=== PATIENT | female | born 1970 | race Caucasian/White ===

== ENCOUNTER → 2017-04-25 10:16 | Outpatient (CLI) | payer OTHER, SELFPAY | PROVIDERS: Family Provider Internal Medicine; PCP Internal Medicine; Visit Provider Nurse Practitioner Women's Health | DX: Z12.4 Encounter for screening for malignant neoplasm of cervix (principal) ==

== ENCOUNTER → 2017-05-29 08:12 | Outpatient (CLI) | payer OTHER, SELFPAY ==
--- NOTE | 2017-05-29 08:14 | HPBI_ITS ---
MAMMOGRAPHY - BILATERAL SCREENING REASON FOR EXAM: Female, 46 years old. Routine annual screening examination. PERTINENT HISTORY: Non-contributory. TECHNIQUE: Digital bilateral breast priscila (3D mammographic acquisition) in the CC and MLO projections. 2-D mediolateral oblique (MLO) and craniocaudad (CC) views of both breasts were obtained. CAD: Full Field Digital Mammography with Computer Added Detection was performed. COMPARISON: Comparison is made with prior examination dated August 15, 2015. FINDINGS: Breast Composition: The breasts are heterogeneously dense, which may obscure small masses. There are no dominant masses or suspicious calcifications. No other significant abnormalities are identified. There has been no significant change since the prior study. HPBI/SCREENING MAMM (CAD), BILAT IMPRESSION: Stable bilateral screening mammogram. Yearly follow-up mammogram recommended. (A) ASSESSMENT CATEGORY: BIRADS Category 1: Negative. A letter regarding these results will be sent to the patient by the facility within 30 days. Approximately 10% of breast cancers are not detected by mammography. A normal mammogram should not delay biopsy of a clinically suspicious abnormality. [id number] Electronically Signed: Joshua Renee MD at 10:57 EST Tel [phone], Service support ,
== END ==
PROVIDERS: Visit Provider Nurse Practitioner Women's Health
DX: Z12.31 Encounter for screening mammogram for malignant neoplasm of breast (principal)
CPT/HCPCS: 77063; 77067

== ENCOUNTER → 2019-02-17 09:55 | Outpatient (CLI) | payer OTHER, SELFPAY ==
[2018-06-22 11:04] VITALS: BMI 24.9
[2018-12-25 08:27] VITALS: BMI 24.9
--- NOTE | 2019-02-17 09:57 | BI_ITS ---
MAMMOGRAPHY - BILATERAL SCREENING 3-D TOMOSYNTHESIS REASON FOR EXAM: Female, 48 years old. Routine annual screening examination. PERTINENT HISTORY: No significant family history. TECHNIQUE: 2-D mammograms and 3-D Tomosynthesis of the breast (s) were performed. CAD was performed. COMPARISON: May 29, 2017 FINDINGS: The breast composition is almost entirely fat. Scattered benign calcifications are seen. No dense spiculated masses or suspicious microcalcifications are identified. No architectural distortion is identified. There is no skin thickening or retraction. Stable lymph nodes. There has been no significant change since the prior study. BI/SCREEN MAMM (CAD) W/JERRI BILAT IMPRESSION: No mammographic signs of malignancy. Routine yearly mammograms recommended. ASSESSMENT CATEGORY: BIRADS Category 2: Benign. A letter regarding these results will be sent to the patient by the facility within 30 days. FOLLOW UP RECOMMENDATION: Yearly follow up mammogram recommended. (A) Approximately 10% of breast cancers are not detected by mammography. A normal mammogram should not delay biopsy of a clinically suspicious abnormality. Electronically Signed: Morgan Méndez MD at 11:26 EST , Service support ,
== END ==
PROVIDERS: Family Provider Internal Medicine; PCP Internal Medicine; Referring Provider Nurse Practitioner Women's Health; Visit Provider Nurse Practitioner Women's Health
DX: Z12.31 Encounter for screening mammogram for malignant neoplasm of breast (principal)
CPT/HCPCS: 77063; 77067

== ENCOUNTER → 2020-04-05 15:53 | Outpatient (CLI) | payer OTHER, SELFPAY ==
[2020-03-01 08:57] VITALS: BMI 25.0
--- NOTE | 2020-04-05 15:56 | BD_ITS ---
STUDY: DUAL ENERGY X-RAY ABSORPTIOMETRY / DXA REASON FOR EXAM: Female, 49 years old. 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 COMPARISON: None. FINDINGS: Lumbar Spine (L1-L4): g/cm2 (1.296) / T-score (1.1) / Z-score (1.6) Findings are suggestive of normal bone density with a low fracture risk. Left Femur Total: g/cm2 (1.083) / T-score (0.6) / Z-score (1.1) Left Femoral Neck: g/cm2 (0.945) / T-score (-0.7) / Z-score (0.2) Right Femur Total: g/cm2 (1.067) / T-score (0.5) / Z-score (1.0) Right Femoral Neck: g/cm2 (0.931) / T-score (-0.8) / Z-score (0.1) BD/Dexa Bone Density Study IMPRESSION: The patient is considered normal as outlined below according to World [employer] Organization (WHO) criteria with a low fracture risk. Reference Information: The T-score is the number of standard deviations above or below the standard which is normal for young adults at their peak bone mineral density. The World Health Organization (WHO) interprets the T-scores as follows: Above -1 Normal bone density Between -1 and -2.5 Osteopenia Equal to / or below -2.5 Osteoporosis As a practical clinical guideline, osteopenia may be graded as follows: Mild -1 through -1.5 Moderate -1.6 through -2.0 Severe -2.1 through -2.4 The Z-score is the number of standard deviations above or below age-matched controls. A Z-score of less than -1.5 would be considered abnormal. References: 1. NIH Osteoporosis and Related Bone Diseases www osteo.org 2. International Society for Clinical Densitometry www iscd.org 3. National Osteoporosis Foundation www nof.org Electronically Signed: Joshua Renee, at 15:28 EST , Service support ,
--- NOTE | 2020-04-05 15:56 | BI_ITS ---
MAMMOGRAPHY - BILATERAL SCREENING REASON FOR EXAM: Female, 49 years old. Routine annual screening examination. PERTINENT HISTORY: Non-contributory. TECHNIQUE: Digital bilateral breast jerri (3D mammographic acquisition) in the CC and MLO projections. 2-D mediolateral oblique (MLO) and craniocaudad (CC) views of both breasts were obtained. CAD: Full Field Digital Mammography with Computer Added Detection was performed. COMPARISON: Comparison is made with prior examination dated 02/17/2019 and 05/29/2017. FINDINGS: Breast Composition: The breasts are heterogeneously dense, which may obscure small masses. There are no dominant masses or suspicious calcifications. Stable small benign appearing bilateral axillary lymph nodes. No other significant abnormalities are identified. There has been no significant change since the prior study. BI/SCREEN MAMM (CAD) W/JERRI BILAT IMPRESSION: Stable bilateral screening mammogram. Yearly follow-up mammogram recommended. (A) ASSESSMENT CATEGORY: BIRADS Category 2: Benign. A letter regarding these results will be sent to the patient by the facility within 30 days. Approximately 10% of breast cancers are not detected by mammography. A normal mammogram should not delay biopsy of a clinically suspicious abnormality. [id number] Electronically Signed: Joshua Renee, at 8:30 EST , Service support ,
== END ==
PROVIDERS: PCP Internal Medicine; Referring Provider Nurse Practitioner Women's Health; Visit Provider Nurse Practitioner Women's Health
DX: Z12.31 Encounter for screening mammogram for malignant neoplasm of breast (principal); Z78.0 Asymptomatic menopausal state
CPT/HCPCS: 77063; 77067; 77080

== ENCOUNTER 2021-04-11 16:25 | Outpatient (CLI) | payer OTHER, SELFPAY ==
[2020-10-21 08:44] VITALS: BMI 25.0
--- NOTE | 2021-04-11 16:27 | BI_ITS ---
MAMMOGRAPHY - BILATERAL SCREENING REASON FOR EXAM: Female, 50 years old. Routine annual screening examination. PERTINENT HISTORY: Non-contributory. TECHNIQUE: Digital bilateral breast jerri (3D mammographic acquisition) in the CC and MLO projections. 2-D mediolateral oblique (MLO) and craniocaudad (CC) views of both breasts were obtained. CAD: Full Field Digital Mammography with Computer Added Detection was performed. COMPARISON: Comparison is made with prior study dated 04/05/2020 and 02/17/2019. FINDINGS: Breast Composition: The breasts are heterogeneously dense, which may obscure small masses. There are no dominant masses or suspicious calcifications. Stable benign appearing bilateral axillary lymph nodes. No other significant abnormalities are identified. There has been no significant change since the prior study. BI/SCRN MAMM (CAD)W/JERRI BILAT IMPRESSION: Stable bilateral screening mammogram. Yearly follow-up mammogram recommended. (A) ASSESSMENT CATEGORY: BIRADS Category 2: Benign. A letter regarding these results will be sent to the patient by the facility within 30 days. Approximately 10% of breast cancers are not detected by mammography. A normal mammogram should not delay biopsy of a clinically suspicious abnormality. [id number] Electronically Signed: Joshua Renee MD at 8:44 EST , Service support ,
== END 2021-04-11 23:59 | disposition short-term general hospital (02) ==
PROVIDERS: PCP Internal Medicine; Referring Provider Nurse Practitioner Women's Health; Visit Provider Nurse Practitioner Women's Health
DX: Z12.31 Encounter for screening mammogram for malignant neoplasm of breast (principal)
CPT/HCPCS: 77063; 77067

== ENCOUNTER → 2022-04-24 | Outpatient (CLI) | payer OTHER, SELFPAY ==
[2022-04-28 14:50] LABS: HPV APTIMA, High Risk Negative (Negative)
== END | disposition home or self-care (01) ==
LOC: LABSPEC 10:58
PROVIDERS: PCP Internal Medicine; Visit Provider Nurse Practitioner Women's Health
DX: Z12.4 Encounter for screening for malignant neoplasm of cervix (principal)
CPT/HCPCS: 87624; 88175; G0145

== ENCOUNTER → 2022-04-25 | Outpatient (CLI) | payer OTHER, SELFPAY ==
--- NOTE | 2022-04-25 13:51 | BI_ITS ---
MAMMOGRAPHY - BILATERAL SCREENING REASON FOR EXAM: Female, 51 years old. Routine annual screening examination. PERTINENT HISTORY: Non-contributory. TECHNIQUE: Digital bilateral breast jerri (3D mammographic acquisition) in the CC and MLO projections. 2-D mediolateral oblique (MLO) and craniocaudad (CC) views of both breasts were obtained. CAD: Full Field Digital Mammography with Computer Added Detection was performed. COMPARISON: Comparison is made with prior study dated 04/11/2021 and 04/05/2020. FINDINGS: Breast Composition: The breasts are heterogeneously dense, which may obscure small masses. There are no dominant masses or suspicious calcifications. Stable small benign-appearing bilateral axillary lymph nodes. No other significant abnormalities are identified. There has been no significant change since the prior study. BI/SCRN MAMM (CAD)W/JERRI BILAT IMPRESSION: Stable bilateral screening mammogram. Yearly follow-up mammogram recommended. (A) ASSESSMENT CATEGORY: BIRADS Category 2: Benign. A letter regarding these results will be sent to the patient by the facility within 30 days. Approximately 10% of breast cancers are not detected by mammography. A normal mammogram should not delay biopsy of a clinically suspicious abnormality. [id number] Electronically Signed: Joshua Renee MD at 15:01 EST ,
== END | disposition home or self-care (01) ==
LOC: OPBI 13:49
PROVIDERS: PCP Internal Medicine; Referring Provider Nurse Practitioner Women's Health; Visit Provider Nurse Practitioner Women's Health
DX: Z12.31 Encounter for screening mammogram for malignant neoplasm of breast (principal)
CPT/HCPCS: 77063; 77067

== ENCOUNTER → 2023-02-02 | Outpatient (CLI) | payer OTHER, SELFPAY ==
[2023-02-02 08:57] LABS: Hematocrit 41.5 % (37-47); Hemoglobin 13.4 g/dL (12.0-15.0); Mean Corp Hgb Conc 32.3 g/dL (32-36); Mean Corpuscular Hgb 29.1 pg (27.0-32.0); Mean Platelet Vol. 10.6 fl (6.2-12.0); Platelet Count 286 K/mm3 (150-450); Red Blood Count 4.61 M/mm3 (4.2-5.4); White Blood Count 5.4 K/mm3 (4.4-11.0)
[2023-02-02 09:49] LABS: ALB/GLOB Ratio 1.1 RATIO (0.9-2.4); AST(SGOT) 14 U/L (15-37); Alanine Aminotransfer ALT/SGPT 23 U/L (13-56); Albumin, Serum 3.8 g/dL (3.2-5.0); Alkaline Phosphatase 47 U/L (45-117); Anion Gap 3 (5-15); BUN 18 mg/dL (7-18); BUN/Creat Ratio 24.1 RATIO (10-20); Calcium,Total 8.9 mg/dL (8.5-10.1); Chloride 107 mmol/L (98-107); Cholesterol 182 mg/dL (200); Creatinine, Serum 0.75 mg/dL (0.55-1.02); EST Glomerular Filtration Rate 86 mL/min (>60); Est Glom Filt Rate - Afr Amer 104 mL/min (>60); Globulin 3.5 g/dL (2.2-4.2); Glucose 94 mg/dL (74-106); High Density Lipoprotein 74 mg/dL; Protein, Total 7.3 g/dL (6.4-8.2); Sodium Level 139 mmol/L (136-145); Thyroid Stim Hormone (TSH) 3.18 uIU/mL (0.358-3.74); Triglycerides 43 mg/dL; Very Low Density Lipoprotein 9 mg/dL (5-40)
== END | disposition home or self-care (01) ==
LOC: LAB 07:48
PROVIDERS: PCP Internal Medicine; Visit Provider Nurse Practitioner
DX: Z00.00 Encounter for general adult medical examination without abnormal findings (principal); Z13.220 Encounter for screening for lipoid disorders; Z13.1 Encounter for screening for diabetes mellitus
CPT/HCPCS: 36415; 80053; 80061; 84443; 85027

== ENCOUNTER → 2023-06-07 | Outpatient (CLI) | payer OTHER, SELFPAY ==
--- NOTE | 2023-06-07 08:08 | BI_ITS ---
MAMMOGRAPHY - BILATERAL SCREENING REASON FOR EXAM: Female, 52 years old. Routine annual screening examination. PERTINENT HISTORY: Non-contributory. TECHNIQUE: Digital bilateral breast jerri (3D mammographic acquisition) in the CC and MLO projections. 2-D mediolateral oblique (MLO) and craniocaudad (CC) views of both breasts were obtained. CAD: Full Field Digital Mammography with Computer Added Detection was performed. COMPARISON: Comparison is made with prior study April 25, 2022 and April 11, 2021. FINDINGS: Breast Composition: The breasts are heterogeneously dense, which may obscure small masses. There are no dominant masses or suspicious calcifications. Stable small benign-appearing bilateral axillary lymph nodes. No other significant abnormalities are identified. There has been no significant change since the prior study. BI/SCRN MAMM (CAD)W/JERRI BILAT IMPRESSION: Stable bilateral screening mammogram. Yearly follow-up mammogram recommended. (A) ASSESSMENT CATEGORY: BIRADS Category 2: Benign. A letter regarding these results will be sent to the patient by the facility within 30 days. Approximately 10% of breast cancers are not detected by mammography. A normal mammogram should not delay biopsy of a clinically suspicious abnormality. [id number] Electronically Signed: Joshua Renee MD at 9:05 EDT ,
--- OUTSIDE RECORDS SUMMARY | 2023-06-07 08:25 | XMS RPT_ITS | CCD ---
Author Name Unknown Address [address] [place] [address] Organization [facility] Care Team Providers Care Commercial Front Load Operator Name Role Phone Ninoska WE[place], [place] Primary Care Provider Billy Gallardo MD Primary Care Provider [phone] BILLY GALLARDO Primary Care Unavailable OLDER, EDITH Attending Unavailable Allergies Allergy Classification Reported Allergen(s) Allergy Type Date of Onset Reaction(s) Facility (3 sources) Enviromental [Other] Propensity to adverse reactions [address] [place] [address] Work Phone: (1 source) OTHER; Translations: [OTHER] Propensity to adverse reactions (disorder) [address] [place] [address] Repository Medications Completed/Discontinued Medications Medication Drug Class(es) Dates Sig (Normalized) Sig (Original) Calcium Carbonate / vitamin D3 (2 sources) End: 01-25-2023 CALCIUM CARBONATE/VITAMIN D3 (VITAMIN D-3 ORAL) Take by mouth. 0 01/25/2023 Discontinued (Discontinued by Patient) Problems Active Problems Problem Classification Problem Date Documented Da te Episodic/Chronic Anxiety disorders (2 sources) Anxiety; Translations: [Anxiety disorder, unspecified] Onset: 01-25-2023 01-28-2023 Chronic Other screening for suspected conditions (not mental disorders or infectious disease) (5 sources) Patient encounter status; Translations: [Encounter for screening for malignant neoplasm of colon] Onset: 01-25-2023 Episodic Past or Other Problems Problem Classification Problem Date Documented Da te Episodic/Chronic Allergic reactions (3 sources) Radiation-induced dermatosis; Translations: [Other skin changes due to chronic exposure to nonionizing radiation] Onset: 11-10-2007 09-13-2009 Episodic Neoplasms of unspecified nature or uncertain behavior (3 sources) Neoplasm of uncertain behavior of skin; Translations: [Neoplasm of uncertain behavior of skin] Onset: 11-12-2009 11-12-2009 Episodic Other and unspecified benign neoplasm (3 sources) Benign neoplasm of skin of trunk; Translations: [Other benign neoplasm of skin of trunk] Onset: 11-10-2007 11-10-2007 Episodic Other and unspecified benign neoplasm (3 sources) Benign neoplasm of skin of face; Translations: [Other benign neoplasm of skin of unspecified part of face] Onset: 11-10-2007 11-10-2007 Episodic Other and unspecified benign neoplasm (3 sources) Benign tumor of head and neck; Translations: [Other benign neoplasm of skin of scalp and neck] Onset: 11-10-2007 11-10-2007 Episodic Other and unspecified benign neoplasm (3 sources) Benign neoplasm of skin of upper limb; Translations: [Other benign neoplasm of skin of unspecified upper limb, including shoulder] Onset: 11-10-2007 11-10-2007 Episodic Other and unspecified benign neoplasm (3 sources) Dysplastic nevus of skin; Translations: [Melanocytic nevi, unspecified] Onset: 10-08-2009 10-08-2009 Episodic Other and unspecified benign neoplasm (3 sources) Dysplastic nevus of trunk; Translations: [Other benign neoplasm of skin of trunk] Onset: 10-08-2009 10-08-2009 Episodic Other and unspecified benign neoplasm (3 sources) Melanocytic nevus of trunk; Translations: [Melanocytic nevi of trunk] Onset: 10-08-2009 10-08-2009 Episodic Other and unspecified benign neoplasm (3 sources) Melanocytic nevus of upper limb; Translations: [Melanocytic nevi of unspecified upper limb, including shoulder] Onset: 10-08-2009 10-08-2009 Episodic Other and unspecified benign neoplasm (3 sources) Melanocytic nevus of lower limb; Translations: [Melanocytic nevi of unspecified lower limb, including hip] Onset: 10-08-2009 10-08-2009 Episodic Other circulatory disease (3 sources) Non-neoplastic nevus; Translations: [Nevus, non-neoplastic] Onset: 11-10-2007 11-10-2007 Episodic Other skin disorders (3 sources) Disorder of skin pigmentation; Translations: [Disorder of pigmentation, unspecified] Onset: 11-10-2007 10-08-2009 Episodic Other skin disorders (3 sources) Seborrheic keratosis; Translations: [Other seborrheic keratosis] Onset: 10-08-2009 10-08-2009 Episodic Other skin disorders (3 sources) Skin tag; Translations: [Unspecified hypertrophic and atrophic conditions of skin] Onset: 10-08-2009 10-08-2009 Episodic Results Test Name Value Interpretation Reference Range Facil ity Vital Signs Date Time Vital Sign Value Performing Clinician Faci lity 01-25-2023 13:56-0400 Body height 156.8 cm Edith Older RESOURCE TEACHER.NATURAL DEVELOPER Work Phone: [facility] 01-25-2023 13:56-0400 Body weight 59.42 kg Edith Older RESOURCE TEACHER.NATURAL DEVELOPER Work Phone: [facility] 01-25-2023 13:56-0400 Diastolic blood pressure 87 mm[Hg] Edith Older RESOURCE TEACHER.NATURAL DEVELOPER Work Phone: [facility] 01-25-2023 13:56-0400 Heart rate 67 /min Edith Older RESOURCE TEACHER.NATURAL DEVELOPER Work Phone: [facility] 01-25-2023 13:56-0400 Respiratory rate 12 /min Edith Older RESOURCE TEACHER.NATURAL DEVELOPER Work Phone: [facility] 01-25-2023 13:56-0400 Systolic blood pressure 134 mm[Hg] Edith Older RESOURCE TEACHER.NATURAL DEVELOPER Work Phone: [facility] Encounters Encounter Date Encounter Type Care Provider Facility Start: 02-04-2023 ambulatory Edith Older RESOURCE TEACHER .NATURAL DEVELOPER Work Phone: [facility] [place] Procedures Date Procedure Procedure Detail Performing Clinician Start: 04-11-2021 Mammography Ny pollard MD Work Phone: Start: 09-20-2012 Lipid 1996 panel - S ortiz or Plasma Edith Older RESOURCE TEACHER.NATURAL DEVELOPER Work Phone: Plan of Treatment Date Care Activity Detail Author Start: 01-20-2030 Urine microalbumin profile [facility] Start: 04-24-2027 HPV Testing HPV Testing [facility] Start: 04-24-2027 Pap Testing Pap Testing [facility] Start: 02-02-2026 Diabetes Screening Diabetes Screenin g [facility] Start: 01-29-2024 Covid-19 Vaccine ( season) Covid-19 Vaccine ( season) [facility] Immunizations Immunization Date Immunization Notes Care Provider Sangeetha heard 02-12-2022 influenza virus vaccine, unspecified formulation Edith Older RESOURCE TEACHER.NATURAL DEVELOPER Work Phone: [facility] 01-21-2020 tetanus toxoid, redu rachael diphtheria toxoid, and acellular pertussis vaccine, adsorbed Ny Mishra MD Work Phone: [facility] Work Phone: 01-13-2010 influenza virus vaccine, unspecified formulation Ny Mishra MD Work Phone: [facility] 05-11-2008 hepatitis B vaccine, adult dosage Ny Mishra MD Work Phone: [facility] Work Phone: 12-10-2007 hepatitis B vaccine, adult dosage Ny Mishra MD Work Phone: [facility] Work Phone: 11-10-2007 hepatitis B vaccine, adult dosage Ny Mishra MD Work Phone: [facility] Work Phone: 11-10-2007 tetanus toxoid, redu rachael diphtheria toxoid, and acellular pertussis vaccine, adsorbed Ny Mishra MD Work Phone: [facility] Work Phone: Payers Date Payer Category Payer Private Health Insurance [id number] 2017 Private Health Insurance [id number] Social History Date Type Detail Facility Start: 01-25-2023 Tobacco smoking stat RUSTIS Ex-smoker [facility] Work Phone: End: 05-15-1990 History of tobacco use Current smoker [facility] Work Phone: End: 05-15-1990 History of tobacco use Cigarette Smoker [facility] Work Phone: Start: 11-08-2021 End: 01-25-2023 Alcohol intake Current drinker of alcohol (finding) [facility] Start: 07-25-2007 [facility] Comment [facility] Start: 1970 Sex Assigned At Not on file [facility] Start: 01-25-2023 Tobacco use and exposure Smokeless tobacco non-user [facility] Start: 01-25-2023 End: 01-28-2023 History of Social function [facility] Work Phone: Start: 01-25-2023 End: 01-28-2023 Tobacco use panel [facility] Work Phone: Adult Depression Screening Assessment 0 [facility] Work Phone: Progress note 01-25-2023 Note Date & Type Note Facility 01-25-2023 Note HNO ID: [id number] Author: Edith Álvarez APRN.NATURAL DEVELOPER Service: ? Author Type: Nurse Practitioner Type: Progress Notes Filed: 01/28/2023 7:54 AM Note Text: CC: Patient presents with: Physical HPI Krupa Grimes is a 52 year old female who presents today for above. Exercise: cardio/weights about once a week, trying to work-out more. Diet: Watches diet for salt (salty snacks, added salt, processed frozen/canned foods), sugary/sweet snacks, unhealthy fats: Yes Anxiety- worsening. She is getting counseling once a week, therapist suggested going back on medication. She was on Paxil before and did well, would like to resume taking. Review of Systems Constitutional: Negative for chills, diaphoresis, fatigue, fever and unexpected weight change. Respiratory: Negative for cough, shortness of breath and wheezing. Cardiovascular: Negative for chest pain, palpitations and leg swelling. Gastrointestinal: Negative for abdominal pain, blood in stool, constipation and diarrhea. Musculoskeletal: Negative for arthralgias and myalgias. Skin: Negative for rash. Neurological: Negative for dizziness, weakness and light-headedness. Psychiatric/Behavioral: Negative for self-injury, sleep disturbance and suicidal ideas. The patient is nervous/anxious. PAST MEDICAL HISTORY Diagnosis Date Chronic depressive personality disorder Dysuria PAST SURGICAL HISTORY Procedure Laterality Date DELIVERY ONLY C/S X 2 , low cervical, X-2 DILATION AND CURETTAGE DXAND/THER NONOBSTETRIC Dilation AND curettage LIG/TRNSXJ FLP TUBE ABDL/VAG APPR UNI/BI PP tubal at time of C/S ALLERGIES Enviromental [Other] MEDICATIONS PARoxetine (PAXIL) 10 mg tablet Take 1 tablet by mouth once daily. FAMILY HISTORY Problem Relation Age of Onset Colon Cancer Maternal Grandmother Hypertension Maternal Grandmother Diabetes Maternal Grandmother Colon Cancer Paternal Grandmother Thyroid Sister other (Celiac Disease [Other]) Daughter Noted that Pt's also has Celiac disease Thyroid Father Hypertension Mother GI Mother Social History Tobacco Use Smoking status: Former Types: Cigarettes Quit date: 05/15/1990 Years since quittin.7 Smokeless tobacco: Never Substance Use Topics Alcohol use: Yes Comment: Occasionally Drug use: No BP 134/87 Pulse 67 Resp 12 Ht 156.8 cm (5' 1.75 ) Wt 59.4 kg (131 lb) LMP 08/06/2015 BMI 24.15 kg/m? Physical Exam Vitals reviewed. Constitutional: Appearance: Normal appearance. Eyes: Conjunctiva/sclera: Conjunctivae normal. Cardiovascular: Rate and Rhythm: Normal rate and regular rhythm. Pulses: Normal pulses. Heart sounds: No murmur heard. Pulmonary: Effort: Pulmonary effort is normal. Breath sounds: Normal breath sounds. No wheezing, rhonchi or rales. Musculoskeletal: Cervical back: Neck supple. Right lower leg: No edema. Left lower leg: No edema. Lymphadenopathy: Cervical: No cervical adenopathy. Skin: General: Skin is warm and dry. Neurological: Mental Status: She is alert. Psychiatric: Mood and Affect: Mood normal. Behavior: Behavior normal. Health maintenance reviewed with patient: Colorectal Cancer Screening Never done Diabetes Screening due on 05/04/2017 Lipid Screening due on 09/20/2017 Shingrix Vaccine(1 of 2) Never done Depression Assessment Never done Influenza Vaccine(1) due on 11/23/2022 Covid-19 Vaccine( season) due on 11/23/2022 Mammogram Screening due on 04/25/2023 Pap Testing due on 04/24/2027 HPV Testing due on 04/24/2027 DTaP,Tdap,Td Vaccine(3 - Td or Tdap) due on 01/20/2030 Hepatitis B Vaccine Completed Hepatitis C Screening Discontinued HIV Screening Discontinued DATA REVIEWED: Most recent labs ASSESSMENT/PLAN: 1. Wellness examination - ICD9: V70.0, ICD10: Z00.00 (primary diagnosis) - Counseled on healthy diet and regular exercise - Calcium intake with supplements or by diet of 1000 mg/day for under 50, 6374-1621 mg/day for 50+ - Mammogram ordered - exam recommended once yearly - Depression screening tool completed and reviewed with patient. Based on score and interview, patient is not at risk for depression and recommended no further intervention at this time. - Patient was counseled [id number] by myself (the billing provider) for the following immunizations and vaccine components, including side effects: Shingrix. Patient will check with insurance first - Follow up for annual exam in one year 2. Anxiety - ICD9: 300.00, ICD10: F41.9 Start Paxil 10 mg daily - Reviewed benefits of sleep hygeine, diet and exercise - she will let me know in 2-3 weeks if dose ineffective and can increase to 20 mg - continue with counseling - Instructed patient to contact office or [id number] after-hours promptly should condition worsen or any new symptoms appear. - Given information regarding 988 Suicide and Crisis Lifeline 3. Encounter for (more content not included)... [facility] History of Present illness Narrative 01-25-2023 Older, Edith, RESOURCE TEACHER.NATURAL DEVELOPER - 01/25/2023 12:20 PM EDT Note Date & Type Note Facility 01-25-2023 History of Presen t illness Narrative CC: Patient presents with: Physical HPI Krupa Grimes is a 52 year old female who presents today for above. Exercise: cardio/weights about once a week, trying to work-out more. Diet: Watches diet for salt (salty snacks, added salt, processed frozen/canned foods), sugary/sweet snacks, unhealthy fats: Yes Anxiety- worsening. She is getting counseling once a week, therapist suggested going back on medication. She was on Paxil before and did well, would like to resume taking. Review of Systems Constitutional: Negative for chills, diaphoresis, fatigue, fever and unexpected weight change. Respiratory: Negative for cough, shortness of breath and wheezing. Cardiovascular: Negative for chest pain, palpitations and leg swelling. Gastrointestinal: Negative for abdominal pain, blood in stool, constipation and diarrhea. Musculoskeletal: Negative for arthralgias and myalgias. Skin: Negative for rash. Neurological: Negative for dizziness, weakness and light-headedness. Psychiatric/Behavioral: Negative for self-injury, sleep disturbance and suicidal ideas. The patient is nervous/anxious. PAST MEDICAL HISTORY Diagnosis Date Chronic depressive personality disorder Dysuria PAST SURGICAL HISTORY Procedure Laterality Date DELIVERY ONLY C/S X 2 , low cervical, X-2 DILATION & CURETTAGE DX&/THER NONOBSTETRIC Dilation & curettage LIG/TRNSXJ FLP TUBE ABDL/VAG APPR UNI/BI PP tubal at time of C/S ALLERGIES Enviromental [Other] MEDICATIONS PARoxetine (PAXIL) 10 mg tablet Take 1 tablet by mouth once daily. FAMILY HISTORY Problem Relation Age of Onset Colon Cancer Maternal Grandmother Hypertension Maternal Grandmother Diabetes Maternal Grandmother Colon Cancer Paternal Grandmother Thyroid Sister other (Celiac Disease [Other]) Daughter Noted that Pt's also has Celiac disease Thyroid Father Hypertension Mother GI Mother Social History Tobacco Use Smoking status: Former Types: Cigarettes Quit date: 05/15/1990 Years since quittin.7 Smokeless tobacco: Never Substance Use Topics Alcohol use: Yes Comment: Occasionally Drug use: No BP 134/87 Pulse 67 Resp 12 Ht 156.8 cm (5' 1.75 ) Wt 59.4 kg (131 lb) LMP 08/06/2015 BMI 24.15 kg/m Physical Exam Vitals reviewed. Constitutional: Appearance: Normal appearance. Eyes: Conjunctiva/sclera: Conjunctivae normal. Cardiovascular: Rate and Rhythm: Normal rate and regular rhythm. Pulses: Normal pulses. Heart sounds: No murmur heard. Pulmonary: Effort: Pulmonary effort is normal. Breath sounds: Normal breath sounds. No wheezing, rhonchi or rales. Musculoskeletal: Cervical back: Neck supple. Right lower leg: No edema. Left lower leg: No edema. Lymphadenopathy: Cervical: No cervical adenopathy. Skin: General: Skin is warm and dry. Neurological: Mental Status: She is alert. Psychiatric: Mood and Affect: Mood normal. Behavior: Behavior normal. Health maintenance reviewed with patient: Colorectal Cancer Screening Never done Diabetes Screening due on 05/04/2017 Lipid Screening due on 09/20/2017 Shingrix Vaccine(1 of 2) Never done Depression Assessment Never done Influenza Vaccine(1) due on 11/23/2022 Covid-19 Vaccine(3 - 2022- season) due on 11/23/2022 Mammogram Screening due on 04/25/2023 Pap Testing due on 04/24/2027 HPV Testing due on 04/24/2027 DTaP,Tdap,Td Vaccine(3 - Td or Tdap) due on 01/20/2030 Hepatitis B Vaccine Completed Hepatitis C Screening Discontinued HIV Screening Discontinued DATA REVIEWED: Most recent labs ASSESSMENT/PLAN: 1. Wellness examination - ICD9: V70.0, ICD10: Z00.00 (primary diagnosis) - Counseled on healthy diet and regular exercise - Calcium intake with supplements or by diet of 1000 mg/day for under 50, 8117-1465 mg/day for 50+ - Mammogram ordered - exam recommended once yearly - Depression screening tool completed and reviewed with patient. Based on score and interview, patient is not at risk for depression and recommended no further intervention at this time. - Patient was counseled [id number] by myself (the billing provider) for the following immunizations and vaccine components, including side effects: Shingrix. Patient will check with insurance first - Follow up for annual exam in one year 2. Anxiety - ICD9: 300.00, ICD10: F41.9 Start Paxil 10 mg daily - Reviewed benefits of sleep hygeine, diet and exercise - she will let me know in 2-3 weeks if dose ineffective and can increase to 20 mg - continue with counseling - Instructed patient to contact office or [id number] after-hours promptly should condition worsen or any new symptoms appear. - Given information regarding 988 Suicide and Crisis Lifeline 3. Encounter for screening mammogram for breast cancer - ICD9: V76.12, ICD10: Z12.31 - GIOVANA SCREENING Prescription instructions reviewed with patient as applicable. Potential red flag symptoms discussed with the patient. Reviewed appropriate action plan to take if red flag symptoms occur. Patient agreeable to treatment plan. Edith Álvarez APRN.CNP documented in this encounter [facility] Clinical Note 01-31-2022 Note Date & Type Note Facility 01-31-2022 Note Patient Outreach ( CIND) KRUPA GRIMES ([id number]) 1970 F Date Time Provider Department 01/31/22 [place] During your visit today, we recorded the following information about you: Allergies As of Date: 01/31/2022 Noted Allergy Reaction Enviromental [Other] 04/06/2005 Date Reviewed: 02/15/2021 Reviewed by: Elizabeth Álvarez APRN.NATURAL DEVELOPER - Fully Assessed Visit Diagnosis:Screening for colon cancer [Z12.11] Order(s):COLONOSCOPY SCREENING [GI51] Order #: [id number] FUTURE Prescriptions as of 02/05/2022 - loratadine (CLARITIN) 10 mg tablet Take 10 mg by mouth once daily. - CYANOCOBALAMIN, VITAMIN B-12, (VITAMIN B-12 ORAL) Take by mouth. - CALCIUM CARBONATE/VITAMIN D3 (VITAMIN D-3 ORAL) Take by mouth. Problem List As Of Date 01/31/2022 Noted Resolved NEVUS///BENIGN XIMENA SKIN TRUNK [D23.5] 11/10/2007 NEVI/////BENIGN XIMENA SKIN FACE NEC [D23.30] 11/10/2007 NEVI/////BENIGN XIMENA SCALP/SKIN NECK [D23.4] 11/10/2007 NEVI////BENIGN XIMENA SKIN ARM [D23.60] 11/10/2007 SOLAR LENTIGINES////DYSCHROMIA OTHER [L81.9] 11/10/2007 ACTINIC DAMAGE///CHR SOLAR SKIN DAMAGE NOS [L57*11/10/2007 TATE ANGIOMA///NEVUS, NON-NEOPLASTIC [I78.1] 11/10/2007 Atypical Nevus: back [D22.9] 10/08/2009 Dysplastic Nevus of back (mid AND R upper mid) [*10/08/2009 Melanocytic Nevus of Trunk: chest and back [D22*10/08/2009 Melanocytic Nevus of Upper Extremity: arms [D22*10/08/2009 Melanocytic Nevus of Lower Extremity: lower leg*10/08/2009 Seborrheic Keratosis [L82.1] 10/08/2009 Skin Tags: axillary areas 10/08/2009 Neoplasm of Uncertain Behavior(NUB) of Skin [D4*11/12/2009 Encounter Status:Closed by DEE PRODUSER on 02/05/22 [facility] Evaluation note Note Date & Type Note Facility documented in this encounter [facility] Evaluation note Note Date & Type Note Facility documented in this encounter [facility] Reason for referral (narrative) Outpatient Procedure (Routine) - Pending Review Note Date & Type Note Facility Referral ID Status Reason Start Date Expiration Date Visits Requested Visits Authorized [id number] Pending Review Auto-Generat ed Referral 01/31/2022 01/31/2023 1 1 [facility] Reason for referral (narrative) Diagnostic Procedure Only (Routine) - Pending Review Note Date & Type Note Facility Referral ID Status Reason Start Date Expiration Date Visits Requested Visits Authorized [id number] Pending Review Auto-Generat ed Referral 01/28/2023 02/27/2024 1 1 [facility] Summary Purpose Family History No Family History Records Found Advance Directives No Advanced Directives Records Found Additional Source Comments Source Comments (unrecognize d section and content) In the event this informatio n is protected by the Federal Confidentiality of Alcohol and Drug Abuse Patient Records regulations: The Federal rules restrict any use of the information to criminally investigate or prosecute any alcohol or drug abuse patient.[facility] Clinic[facility] the event this information is protected by the Federal Confidentiality of Alcohol and Drug Abuse Patient Records regulations: The Federal rules restrict any use of the information to criminally investigate or prosecute any alcohol or drug abuse patient.[facility] the event this information is protected by the Federal Confidentiality of Alcohol and Drug Abuse Patient Records regulations: The Federal rules restrict any use of the information to criminally investigate or prosecute any alcohol or drug abuse patient.[facility] Care Teams (unrecognized sec tion and content) Commercial Front Load Operator Relationship Specialty Start Date End Date Billy Gallardo MD [address] [place] [address] PCP - General Internal Medicine 01/03/23 Commercial Front Load Operator Relationship Specialty Start Date End Date Billy Gallardo MD [address] [place] [address] PCP - General Internal Medicine 01/03/23 Reason for Visit (unrecogniz ed section and content) INFORMATION SOURCE (unrecogn ized section and content) FOR RECORDS PERTAINING TO PATIENTS WHO ARE OR HAVE BEEN ENROLLED IN A CHEMICAL DEPENDENCY/SUBSTANCEABUSE PROGRAM, SOME INFORMATION MAY BE OMITTED. This clinical summary was aggregated from multiple sources. Caution should be exercised in using it in the provision of clinical care. This summary normalizes information from multiple sources, and as a consequence, information in this document may materially change the coding, format and clinical context of patient data. In addition, data may be omitted in some cases. CLINICAL DECISIONS SHOULD BE BASED ON THE PRIMARY CLINICAL RECORDS. [facility]. provides no warranty or guarantee of the accuracy or completeness of information in this document.
== END | disposition home or self-care (01) ==
LOC: OPBI 08:07
PROVIDERS: PCP Internal Medicine; Referring Provider Nurse Practitioner Women's Health; Visit Provider Nurse Practitioner Women's Health
DX: Z12.31 Encounter for screening mammogram for malignant neoplasm of breast (principal)
CPT/HCPCS: 77063; 77067

== ENCOUNTER → 2024-04-24 | Outpatient (CLI) | payer BC, SELFPAY ==
--- NOTE | 2024-04-24 13:10 | RAD_ITS ---
PROCEDURE: KNEE 3 VIEWS REASON FOR EXAM: Knee injury. TECHNIQUE: Three-view left knee series COMPARISON: None. RAD/Knee 3 Views IMPRESSION: No significant left knee joint effusion is noted. Mild tricompartmental degenerative changes are seen, most prominent at the late ral and patellofemoral compartments. No significant joint narrowing is evident. No acute fracture or dislocation is seen. If clinical concern persists, short-term follow-up imaging may be obtained to r ule out a currently occult fracture. Reading Location: [id number]
== END | disposition home or self-care (01) ==
LOC: MTRAD 13:07
PROVIDERS: PCP Internal Medicine; Referring Provider Physician Assistant Surgical; Visit Provider Physician Assistant Surgical
DX: S89.90XA Unspecified injury of unspecified lower leg, initial encounter (principal); X58.XXXA Exposure to other specified factors, initial encounter
CPT/HCPCS: 73562

== ENCOUNTER → 2024-08-01 | Outpatient (CLI) | payer BC, SELFPAY ==
[2024-08-01 10:34] LABS: Absolute Lymphocyte Count 2.26 X10^3/uL (0.83-4.51); Absolute Neutrophil Count 2.7 X10^3/uL (2.0-7.7); Basophil# 0.02 X10^3/uL; Basophil% 0.4 % (0-1); Color, Urine Yellow (Yellow); Eosinophil# 0.07 X10^3/uL; Eosinophils% 1.3 % (0-5); Glucose, Dipstick Normal (Normal); Hematocrit 41.4 % (37-47); Hemoglobin 13.4 g/dL (12.0-15.0); Ketone-Dipstick Negative (Negative); Leukocyte Esterase-Dipstick 25 /ul (Negative); Lymphocyte # 2.26 X10^3/ul (0.83-4.51); Lymphocyte % 40.8 % (19-41); Mean Corp Hgb Conc 32.4 g/dL (32-36); Mean Corpuscular Hgb 28.2 pg (27.0-32.0); Mean Corpuscular Volume 87.2 fL (81-99); Mean Platelet Vol. 10.5 fl (6.2-12.0); NRBC Flagged by Analyzer 0 % (0-5); Neutrophil # 2.67 X10^3/uL (2.7-7.7); Neutrophil % 48.1 % (47-70); Nitrite-Dipstick Negative (Negative); Occult Blood-Urine 25 /ul (Negative); Platelet Count 282 K/mm3 (150-450); Protein-Dipstick 15 mg/dl (Negative); RBC Distribution Width CV 12.5 % (11.6-14.6); RBC Distribution Width SD 40.1 fl (35.1-43.9); Red Blood Count 4.75 M/mm3 (4.2-5.4); Specific Gravity, Urine 1.015 (1.002-1.030); Urine Bilirubin Dipstick Negative (Negative); Urine Clarity Clear (Clear); Urine Urobilinogen Normal (Normal); White Blood Count 5.5 K/mm3 (4.4-11.0)
[2024-08-01 11:38] LABS: ALB/GLOB Ratio 1.5 RATIO (0.9-2.4); AST(SGOT) 18 U/L (<=31); Alanine Aminotransfer ALT/SGPT 18 U/L (<=34); Albumin, Serum 4.5 g/dL (3.5-5.0); Alkaline Phosphatase 44 U/L (35-104); Anion Gap 12 (5-15); BUN 18 mg/dL (4-19); BUN/Creat Ratio 26.3 RATIO (10-20); Calcium,Total 9.4 mg/dL (7.6-11.0); Carbon Dioxide 23.9 mmol/L (21.0-32.0); Chloride 104 mmol/L (98-108); Cholesterol 188 mg/dL (<=200); EST Glomerular Filtration Rate 102 (>60); Globulin 2.9 g/dL (2.2-4.2); Glucose 104 mg/dL (70-99); High Density Lipoprotein 70 mg/dL; Low Density Lipoprotein Calc. 109 mg/dL; Protein, Total 7.4 g/dL (5.9-8.4); Sodium Level 139 mmol/L (133-145); Total Bilirubin 0.66 mg/dL (0.00-1.30); Triglycerides 47 mg/dL; Very Low Density Lipoprotein 9 mg/dL (5-40)
== END | disposition home or self-care (01) ==
LOC: LAB 08:59
PROVIDERS: PCP Nurse Practitioner Family; Referring Provider Nurse Practitioner Family; Visit Provider Nurse Practitioner Family
DX: D64.9 Anemia, unspecified (principal); F41.9 Anxiety disorder, unspecified; Z13.220 Encounter for screening for lipoid disorders
CPT/HCPCS: 36415; 80053; 80061; 81002; 84443; 85025

== ENCOUNTER 2024-08-06 07:44 | Day surgery (SDC) | payer BC, SELFPAY ==
[2024-08-06] VITALS (8 sets, daily range): BP systolic 95–134; BP diastolic 64–80; PULSE 67–91; RESP 14–18; TEMP 36.4–36.8; O2SAT 100; BMI 24.2
[2024-08-06] MEDS: Lactated Ringers 1,000 ML 15 ML IV (08:16)
--- NOTE | 2024-08-06 08:47 | PRE.ANES_ITS ---
ASA Classification* ASA Classification ASA Classification: 2 Assessment & Plan Anesthesia* Anesthesia Assessment Anesthesia Assessment: Discussed sedation and/or anesthesia options, risks, benefits, and alternatives with patient/parents/legal guardian/POA. Questions invited. The patient/parents/legal guardian/POA seems to understand and agrees to proceed with anesthesia plan. Reviewed the physical assessment, medical history, allergy history and patient home medications list prior to surgery/procedure/anesthetic and documented any changes. Performed airway and anesthesia risk assessments. Anesthesia Type Anesthesia Type: MAC History Source History Obtained from:: Patient and Chart Anesthesia Focused Assessment* Temperature: 97.5 F Pulse Rate: 91 Blood Pressure: 134/80 Respiratory Rate: 18 Pulse Ox: 100 Oxygen Delivery Method: Room Air Airway Assessment Mouth opens: >3 cm Mallampati Score: II Teeth Condition: Intact Focused Labs Anesthesia Preop lab: CBC WBC 5.5 K/mm3 (4.4-11.0) 08/01/24 09:08/01/24 RBC 4.75 M/mm3 (4.2-5.4) 08/01/24 09:08/01/24 Hgb 13.4 g/dL (12.0-15.0) 08/01/24 09:10 08/01/24 Hct 41.4 % (37-47) 08/01/24 09:10 08/01/24 Plt Count 282 K/mm3 (150-450) 08/01/24 09:10 08/01/24 CHEMISTRY Potassium 4.0 mmol/L (3.3-5.1) 08/01/24 09:08/01/24 Sodium 139 mmol/L (133-145) 08/01/24 09:10 08/01/24 Phosphorus 3.1 mg/dL (2.5-4.9) 09/20/12 10:08 09/20/12 BUN 18 mg/dL (4-19) 08/01/24 09:08/01/24 Creatinine 0.70 mg/dL (0.70-1.20) 08/01/24 09:10 08/01/24 Glucose 104 mg/dL (70-99) H 08/01/24 09:10 08/01/24 TSH 2.620 uIU/mL (0.300-4.200) 08/01/24 09:10 07/23 COAG Pre-Assessment Diagnosis/Proposed Procedure Planned Operative Procedure(s): COLONOSCOPY Anesthesia History Anesthesia History - eyeglass cutter: Anesthesia History - eyeglass cutter Hx Hospitalization No 08/03/24 16:12 Any Problems With Anesthesia No 08/03/24 16:12 Cholinesterase deficiency No 08/03/24 16:12 You/Your Family Experience No 08/03/24 16:12 fever (hyperthermia) with Relationship Recent Exposure to Contagious No 08/06/24 08:07 Disease Does patient have nerve No 08/03/24 16:12 stimulator Patient instructed to have device shut off --Does patient have Pacemaker No 08/06/24 08:07 or ICD? When Was Last Pacemaker Check QUESTION #4 FULL TEXT: You/Your Family Experience fever (hyperthermia) with Anesthesia Last Oral Intake Last Oral intake: Last Oral Intake NPO since 04:50 08/06/24 08:07 Meds taken in AM with sips of No 08/06/24 08:07 water? Meds patient instructed to take am of surgery PONV PONV - eyeglass cutter: PONV - eyeglass cutter Female Yes 08/03/24 16:12 HX of Motion Sickness No 08/03/24 16:12 HX of N/V After Surgery No 08/03/24 16:12 Non-Smoker Yes 08/03/24 16:12 Duration of Surgery greater No 08/03/24 16:12 than 60 minutes Number of Risk Factors 2 08/03/24 16:12 PONV Score Moderate Risk 08/03/24 16:12 Height & Weight Height & Weight: Anesthesia: Height & Weight Height 5 ft 2 in 08/06/24 08:07 Weight: 60 kg 08/06/24 08:07 Body Mass Index (BMI) 24.2 08/06/24 08:07 Respiratory Assessment Respiratory Assessment - eyeglass cutter: Respiratory Tract Infection Hx - eyeglass cutter Hx Respiratory Tract Infection No 08/03/24 16:12 STOP Sleep Apnea STOP Sleep Apnea - eyeglass cutter: STOP Sleep Apnea - eyeglass cutter Hx Hypertension No 08/03/24 16:12 Hx Sleep Apnea No 08/03/24 16:12 CPAP BIPAP Do you snore loudly (louder No 08/03/24 16:12 than talking or can be heard Do you often feel tired/ No 08/03/24 16:12 fatigued/ sleepy during daytime? Has anyone observed you stop No 08/03/24 16:12 breathing during sleep? STOP Results Negative 08/03/24 16:12 QUESTION #5 FULL TEXT : Do you snore loudly (louder than talking or can be heard through closed doors)? 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 Specify any problems Hx of Preganancy in last 3 No 08/03/24 16:12 Months Nurse Filling Out Transfusion MGRIFFITH 08/03/24 16:12 & Questions: Date: 08/03/24 08/03/24 16:12 Time: 16:14 08/03/24 16:12 Patient unable to answer at this time (ie. confused, unrespo /Reproduction History /Reproductive History - eyeglass cutter: /Reproductive Hx- eyeglass cutter Hx Now No 08/03/24 16:12 Gestational Age (in weeks): EDC: Hx Hx Para Hx Section SAB No 08/03/24 16:12 Active Medications Active Medications: Current Medications Generic Name Dose Route Start Last Admin Trade Name Freq PRN Reason Stop Dose Admin Lactated Ringer's 1,000 mls @ 15 mls/hr 08/06/24 08:00 08/06/24 08:16 IV 15 mls/hr .Q48H FELIPE Administration PFSH Medical History Wears glasses Non-smoker Depression Home Medications ?Medication ?Instructions ?Recorded ?Last Taken ?Type collagen SUPPLEMENT 1 dose PO DAILY 08/03/24 History Allergy/AdvReac Type Severity Reaction Status Date / Time No Known Allergies Allergy Verified 08/06/24 08:06 Family History Father Thyroid disorder Sister Thyroid disorder Colon polyp Mother Hypertension Grandmother Diabetes Colon cancer Maternal @ 80yrs Grandfather Heart disease Grandmother Colon cancer, Onset Age: 54 Paternal, At 54yrs Other Celiac disease Surgical History Tubal ligation status delivery delivered H/O dilation and curettage Social History household members: spouse current occupational status: employed Smoking Status: Never smoker alcohol intake: current details: social substance use type: does not use caffeine: Yes frequency: 1-2 times per week seatbelt use: always do you feel safe at home: Yes 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 Physical Exam Const alert and oriented x3 Resp normal respiratory effort and normal air movement Auscultation: clear to auscultation bilaterally Cardio regular rate and regular rhythm Neuro oriented x3 and moves all extremities
--- NOTE | 2024-08-06 09:00 | COLBX_PTH ---
PATIENT: PRIETO PAIGE LOC: EN U#:[id number] AGE/SX: 53/F ROOM: RE08/06/[address]: Dr. Huseyin Santiago DO : 1970 BED: DIS: 08/06/2024 SPEC #: [id number] RECD: 08/06/24 11:02 STATUS: MARIELA WILMA #: [id number] ROHIT: 08/06/24 09:[address]: Huseyin Santiago DEPT: SURGICAL PATHOLOGY RECD BY: Lee Carey ENTERED: 08/06/24 12:02 SP TYPE: COLON BX MASOUD DR: Maryuri Dozier, SUPERVISOR REFINING-C Tissues: A - COLON BIOPSY Procedures: Surgery Specimen Level IV HEADER OPERATION: Colonoscopy with biopsy PRE-OP DIAGNOSIS: Screening colonoscopy TISSUE SUBMITTED: A- Hepatic flexure polyp biopsy MICROSCOPIC DIAGNOSIS A. Colon, hepatic flexure, polyp, biopsy: Tubular adenoma. MICROSCOPIC DESCRIPTION Slides are reviewed. GROSS DESCRIPTION A. Received in formalin in a container labeled with the patient's name, date of , and hepatic flexure polyp biopsy are multiple kirby-pink fragments of mucosal tissue measuring 1.1 x 0.6 x 0.3 cm in aggregate. Submitted in toto in A1. B 08-06-2024 CPT:84947
--- NOTE | 2024-08-06 09:16 | PCM.HP.STD ---
[facility] - General General Date of Admission: 08/06/24 Date of Service: 08/06/24 Chief Complaint: Screening colonoscopy [facility] Narrative PRIETO PAIGE, is a 53 F who presents today for screening colonoscopy. She has multiple family members with colon cancer. She does not take any medicines on a daily basis and she has no significant past medical history. [facility] Medical History Wears glasses Non-smoker Depression Home Medications ?Medication ?Instructions ?Recorded ?Last Taken ?Type collagen SUPPLEMENT 1 dose PO DAILY 08/03/24 08/04/24 History Allergy/AdvReac Type Severity Reaction Status Date / Time No Known Allergies Allergy Verified 08/06/24 08:06 Family History Father Thyroid disorder Sister Thyroid disorder Colon polyp Mother Hypertension Grandmother Diabetes Colon cancer Maternal @ 80yrs Grandfather Heart disease Grandmother Colon cancer, Onset Age: 54 Paternal, At 54yrs Other Celiac disease Surgical History Tubal ligation status delivery delivered H/O dilation and curettage Social History household members: spouse current occupational status: employed Smoking Status: Never smoker alcohol intake: current details: social substance use type: does not use caffeine: Yes frequency: 1-2 times per week seatbelt use: always do you feel safe at home: Yes 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 Constitutional Constitutional: Denies fatigue, fever(s), poor appetite, weight gain or weight loss Gastrointestinal Gastrointestinal: Denies belching, bloating, change in bowel habits, change in stool character, chewing difficulty, coffee ground emesis, constipation, cramping, diarrhea, dyspepsia, dysphagia, early satiety, excessive flatus, fecal incontinence, heartburn, hematemesis, hematochezia, hemorrhoids, loose stools, melena, nausea, odynophagia, rectal bleeding, tenesmus, vomiting or weight changes Vital Signs Vital Signs Vital Signs: 08/06/24 08:07 08/06/24 08:07 08/06/24 08:51 Temperature 97.5 F L 97.5 F L Temperature Source Temporal Pulse Rate 91 91 Respiratory Rate 18 18 Respiratory Pattern Normal Blood Pressure 134/80 H 134/80 H Blood Pressure Mean 98 Blood Pressure Source Monitor Blood Pressure Position Semi-Fowlers Blood Pressure Location Left Arm Pulse Ox 100 100 Oxygen Delivery Method Room Air Room Air Weight Weight: 132 lb 4.438 oz Body Mass Index (BMI) 24.2 Physical Exam Const alert, oriented x3, no apparent distress and healthy appearing General Appearance: cooperative GI normal to inspection, nondistended, normoactive bowel sounds, soft to palpation, non-tender and non-distended Percussion: normal to percussion Rectal Exam: deferred Assessment & Plan Assessment/Plan (1) Encounter for screening for malignant neoplasm of colon: PLAN: 53-year-old comes in for screening colonoscopy. She was explained alternatives, risk and benefits include understanding bleeding, infection, sepsis, perforation, need for emergent urgent . She will have an ASA of 3.
--- NOTE | 2024-08-06 10:02 | OP.COLON_ITS ---
Patient Name: Krupa Grimes Procedure Date: 08/06/2024 9:21 AM Date of : 1970 Age: 53 Procedure: Colonoscopy Indications: Screening for colon cancer: Family history of colorectal cancer in multiple 2nd degree relatives Providers: Huseyin Santiago DO Referring MD: Justin Metcalf Medicines: Monitored Anesthesia Care Patient Profile: This is a 53 year old female. Refer to note in patient chart for documentation of history and physical. Last Colonoscopy: 5 years ago. Complications: No immediate complications. Procedure: Pre-Anesthesia Assessment: - Prior to the procedure, a History and Physical was performed, and patient medications and allergies were reviewed. The patient is competent. The risks and benefits of the procedure and the sedation options and risks were discussed with the patient. All questions were answered and informed consent was obtained. Patient identification and proposed procedure were verified by the physician in the pre-procedure area. Mental Status Examination: alert and oriented. Airway Examination: normal oropharyngeal airway and neck mobility. Respiratory Examination: clear to auscultation. CV Examination: normal. Prophylactic Antibiotics: The patient does not require prophylactic antibiotics. Prior Anticoagulants: The patient has taken no anticoagulant or antiplatelet agents except for NSAID medication. ASA Grade Assessment: II - A patient with mild systemic disease. After reviewing the risks and benefits, the patient was deemed in satisfactory condition to undergo the procedure. The anesthesia plan was to use monitored anesthesia care (MAC). Immediately prior to administration of medications, the patient was re-assessed for adequacy to receive sedatives. The heart rate, respiratory rate, oxygen saturations, blood pressure, adequacy of pulmonary ventilation, and response to care were monitored throughout the procedure. The physical status of the patient was re-assessed after the procedure. After I obtained informed consent, the scope was passed under direct vision. Throughout the procedure, the patient's blood pressure, pulse, and oxygen saturations were monitored continuously. The pediatric colonoscope was introduced through the anus and advanced to the cecum, identified by the appendiceal orifice, ileocecal valve and palpation. The colonoscopy was performed without difficulty. The patient tolerated the procedure well. The quality of the bowel preparation was adequate. The ileocecal valve, appendiceal orifice, and rectum were photographed. Scope In: 9:37:15 AM Scope Withdrawal Time 0 hours 6 minutes 12 seconds Scope Out: 9:51:06 AM Total Procedure Duration Time 0 hours 13 minutes 51 seconds Findings: The perianal and digital rectal examinations were normal. A few small-mouthed diverticula were found in the sigmoid colon and ascending colon. An 8 mm polyp was found in the hepatic flexure. The polyp was sessile. The polyp was removed with a cold biopsy forceps. Resection and retrieval were complete. Verification of patient identification for the specimen was done. Estimated blood loss was minimal. The exam was otherwise without abnormality on direct and retroflexion views. Impression: - Diverticulosis in the sigmoid colon and in the ascending colon. - One 8 mm polyp at the hepatic flexure, removed with a cold biopsy forceps. Resected and retrieved. - The examination was otherwise normal on direct and retroflexion views. Recommendation: - Discharge patient to home. - Resume previous diet. - Continue present medications. - Await pathology results. - Repeat colonoscopy in 5 years for surveillance. Procedure Code(s): --- Professional --- 17104, Colonoscopy, flexible; with biopsy, single or multiple CPT copyright 2021 [employer]. All rights reserved. The codes documented in this report are preliminary and upon lockstitch pocket setter review may be revised to meet current compliance requirements. Huseyin Santiago DO 08/06/2024 10:01:33 AM This report has been signed electronically. Number of Addenda: 0 Note Initiated On: 08/06/2024 9:21 AM
--- NOTE | 2024-08-06 10:02 | OP.CCLET_ITS ---
08/06/2024 Justin Metcalf Re : Colonoscopy procedure for Krupa Grimes Dear Jacoby This procedure was performed on July. My impressions and recommendations are as follows: Impressions : - Diverticulosis in the sigmoid colon and in the ascending colon. - One 8 mm polyp at the hepatic flexure, removed with a cold biopsy forceps. Resected and retrieved. - The examination was otherwise normal on direct and retroflexion views. Recommendations : - Discharge patient to home. - Resume previous diet. - Continue present medications. - Await pathology results. - Repeat colonoscopy in 5 years for surveillance. My findings are described in the full procedure note, which is enclosed. If I can be of further assistance, please feel free to contact me at . Sincerely, Huseyin Santiago, 08/06/2024 10:01:33 AM This report has been signed electronically.
--- NOTE | 2024-08-06 10:02 | PCM.POST.ANE ---
Anesthesia: Postop Eval I Current Vital Signs Temperature: 97.5 F Pulse Rate: 82 Blood Pressure: 105/64 Respiratory Rate: 16 Pulse Ox: 100 Oxygen Delivery Method: Room Air Assessment Airway patent: Yes Spontaneous unlabored respirations: Yes Mental status: Awake and Calm nausea: No Vomiting: No Anesthesia Complication: No Fluid Hydration Crystalloid volume administer (ml): 700 Total IV fluid infused: 700 Progress Note Anesthesia document: Postop Eval 1 completed: Yes
--- NOTE | 2024-08-06 10:51 | PCM.POSTANE2 ---
Anesthesia Postop Eval I Sum Postop Eval Completion status Anesthesia document: Postop Eval 1 completed: Yes Anesthesia Postop Eval I Summary Anesthesia Postop Eval I Summary: Anesthesia Postop Eval I: Assessment Summary Airway patent Yes 08/06/24 10:03 [email or web address] Spontaneous unlabored Yes 08/06/24 10:03 [email or web address] respirations Mental status Awake,Calm 08/06/24 10:03 [email or web address] nausea No 08/06/24 10:03 [email or web address] Vomiting No 08/06/24 10:03 [email or web address] Anesthesia Postop Eval I: Fluid Summary Crystalloid volume administer 700 08/06/24 10:03 [email or web address] (ml) Colloids volume administered ( ml) Blood Product volume administered (ml) Total IV fluid infused 700 08/06/24 10:03 [email or web address] Anesthesia Postop Eval I: Summary Notes Anesthesia Complication No 08/06/24 10:03 [email or web address] Anesthesia Complication Comment: Post-operative progress note Anesthesia: Postop Eval II Evaluation Mental status: Awake and Calm Pain Level: 0 nausea: No Vomiting: No Complications Anesthesia Complication: No
== END 2024-08-06 10:40 | disposition home or self-care (01) ==
LOC: EN 07:45 → AC 07:45
PROVIDERS: PCP Nurse Practitioner Family; Referring Provider Nurse Practitioner Family; Visit Provider Internal Medicine Gastroenterology
PROC: 0DJD8ZZ Inspection of Lower Intestinal Tract, Via Natural or Artificial Opening Endoscopic (ICD-10-PCS; CPT 45378; principal; 2024-08-06 08:55)
DX: Z12.11 Encounter for screening for malignant neoplasm of colon (principal); D12.3 Benign neoplasm of transverse colon; K57.30 Diverticulosis of large intestine without perforation or abscess without bleeding; Z80.0 Family history of malignant neoplasm of digestive organs
CPT/HCPCS: 45380; 88305; J2405